=== PATIENT | male | born 1960 | race Caucasian/White ===

== ENCOUNTER → 2019-04-01 09:10 | Outpatient (CLI) | payer OTHER, SELFPAY ==
--- NOTE | 2019-04-01 | DI.US.S_ITS ---
PROCEDURE: US ABDOMEN COMPLETE INDICATIONS: PAIN OF UPPER ABDOMEN TECHNIQUE: Real-time scanning was performed of the abdominal and retroperitoneal organs, with image documentation. COMPARISON: None. FINDINGS: Liver: Liver is diffusely increased in echogenicity. Hypoechoic, solid-appearing mass present within the anterior right hepatic lobe measure 1.6 x 1.2 x 1.6 cm. Focal fatty sparing adjacent to the gallbladder.. Normal hepatic size. Gallbladder: Small amount of gallbladder sludge; otherwise normal gallbladder Biliary ducts: Intrahepatic bile ducts are non-dilated. Extrahepatic bile duct caliber measures 3.4 mm. Normal is 6-7 mm or less in diameter, or 10 mm or less post-cholecystectomy. Pancreas: Visualized portions of the pancreas are sonographically normal. Spleen: Spleen is normal in size and homogeneous in echotexture. Kidneys: Kidneys are normal in size and echotexture. Right kidney measures 13.7 cm long; left kidney measures 10.9 cm long. No hydronephrosis or nephrolithiasis. No solid masses. Hypoechoic mass seen superior-medial to the right kidney measuring 2.7 x 2.0 x 2.5 cm. Aorta: Visualized aorta is normal in caliber at less than 3 cm. Iliacs: Proximal common iliac arteries are normal in caliber at less than 2.5 cm. IVC: Intrahepatic inferior vena cava is patent. Miscellaneous: No free abdominal fluid. IMPRESSION: 1. Increased hepatic echogenicity noted possibly related to hepatic steatosis but other sources of hepatocellular disease cannot be excluded. Recommend clinical correlation. 2. Solid-appearing hypoechoic mass involving the right hepatic lobe measuring up to 1.6 cm. Recommend hepatic protocol MRI for further assessment. 3. Probable right adrenal mass which also can be further assessed with CT or MRI. Dictated by: Fausto GRAHAM Interpreted: Viktor Richardson MD on 04/03/2019 at 12:07 Approved by: Viktor Richardson M.D. on 04/03/2019 at 15:27
== END ==
PROVIDERS: PCP Family Medicine; Visit Provider Family Medicine
DX: R10.10 Upper abdominal pain, unspecified (principal); R16.0 Hepatomegaly, not elsewhere classified
CPT/HCPCS: 76700

== ENCOUNTER → 2019-05-07 10:37 | Outpatient (CLI) | payer OTHER, SELFPAY ==
--- NOTE | 2019-05-07 | DI.NM.S_ITS ---
PROCEDURE: NM HIDA WITH CCK PHARMACEUTICAL: 5.8 mCi Tc-99m mebrofenin IV; 1.8 mcg CCK IV. INDICATIONS: LIVER MASS/BILIARY SLUDGE TECHNIQUE: Following intravenous administration of Tc-99m mebrofenin, sequential anterior abdominal images were obtained. To evaluate the contractile response of the gallbladder in response to Cholecystokinin (CCK), sincalide (0.02 ?g/kg) was administered by slow intravenous infusion approximately 60 minutes after the administration of the radiopharmaceutical. Sequential imaging was continued for 30 minutes after the start of CCK infusion. Gallbladder ejection fraction was calculated. COMPARISON: None. FINDINGS: Biliary scan: There is normal tracer uptake and excretion by the liver. There is normal visualization of the intrahepatic ducts, common bile duct, and gallbladder. There is normal tracer transit into the duodenum. CCK stimulation: There is normal contractile response of the gallbladder to CCK infusion. The calculated gallbladder ejection fraction is 88%; normal values are above 35%. It has been shown that any patient abdominal pain after CCK administration is related to the rate of CCK injection, rather than to any underlying gallbladder disease (Clinical Nuclear Medicine 2012; 37: 63-70. Journal of Nuclear Medicine 2014; 55: 1-9). IMPRESSION: 1. Normal filling of gallbladder. No evidence for acute cholecystitis. 2. Normal contractile response of gallbladder to CCK stimulation. Dictated by: Thomas Carballo M.D. on 05/07/2019 at 13:56 Approved by: Thomas Carballo M.D. on 05/07/2019 at 13:57
--- NOTE | 2019-05-07 | DI.MRI.S_ITS ---
PROCEDURE: MR ABDOMEN WO/W CON INDICATIONS: LIVER MASS/BILIARY SLUDGE TECHNIQUE: Coronal HASTE, axial 2D FLASH in- and [id number]; axial breath-hold T2 FSE. Dynamic axial VIBE during the administration of contrast; post-contrast coronal VIBE or 2D FLASH with fat saturation from the hepatic dome to the iliac crests. Optional diffusion weighted imaging and ADC may be performed. COMPARISON: Abdominal ultrasound 04/01/2019. FINDINGS: Image quality: Excellent. Lung bases: No basal pleural effusions. Heart size is normal. Solid organs: Noncirrhotic liver morphology. Diffuse hepatic steatosis. A few areas of focal fatty sparing. Peripheral right hepatic lobe lesion measuring 1.4 x 1.4 cm, (5/17). The lesion demonstrates peripheral nodular discontinuous enhancement which follows the blood pool. No restricted diffusion. Gallbladder is nondistended. Small layering gallstones and possible small gallbladder polyp, (5/20). Biliary system is non dilated. Pancreas is normal in morphology. Spleen is normal in size and enhancement. No adrenal nodules. Both kidneys demonstrate normal size and enhancement, without hydronephrosis. Simple cyst at the superior pole of the right kidney measuring 2.2 cm. Nodes and vessels: No retroperitoneal or mesenteric adenopathy by size criteria. Aorta and inferior vena cava are normal in size. Bowel and peritoneum: Unenhanced bowel loops are normal in caliber. Scattered colonic diverticuli. No free fluid. Bones and soft tissues: No ventral hernias. No suspicious osseous lesion. T12 and L3 circumscribed mild T2 hyperintense lesions without enhancement most compatible with benign intraosseous hemangiomas. Bone marrow is otherwise in overall signal. IMPRESSION: 1. Non-cirrhotic liver morphology. Small benign hemangioma in the right lobe. 2. Diffuse hepatic steatosis. 3. No right adrenal nodule. There is an adjacent simple cyst in the superior pole the right kidney. 4. Cholelithiasis and possible small gallbladder polyp. Dictated by: Da Fernandez M.D. on 05/07/2019 at 13:00 Approved by: Da Fernandez M.D. on 05/07/2019 at 13:51
== END ==
PROVIDERS: PCP Family Medicine; Visit Provider Family Medicine
DX: D18.03 Hemangioma of intra-abdominal structures (principal); K76.0 Fatty (change of) liver, not elsewhere classified; N28.1 Cyst of kidney, acquired; K80.20 Calculus of gallbladder without cholecystitis without obstruction; R16.0 Hepatomegaly, not elsewhere classified
CPT/HCPCS: 74183; 78227; A9537; A9579; J2805

== ENCOUNTER 2019-08-03 11:21 | Day surgery (SDC) | payer OTHER, SELFPAY ==
[2019-07-27 14:39] VITALS: BMI 27.9
[2019-08-03] VITALS (10 sets, daily range): BP systolic 124–141; BP diastolic 64–93; PULSE 60–72; RESP 14–20; TEMP 36.1–36.6; O2SAT 93–98; BMI 28.0
--- NOTE | 2019-08-03 | PATH_ITS ---
[facility] Accession Number: [id number] . 01 Material submitted: . gallbladder - GALLBLADDER AND CONTENTS . 02 Diagnosis: Gallbladder and Contents, Cholecystectomy: Chronic cholecystitis, cholesterolosis, and cholelithiasis. One transmural defect identified at gross examination, nonspecific. MRV 08/05/2019 1252 Local . 02 Electronically signed: . Yudy Obrien MD, Pathologist NPI- [id number] . 01 Gross description: . The specimen is received in a formalin-filled container labeled gallbladder and contents and consists of a 9.5 x 3.3 x 1.5 cm pink-olivares smooth to cauterized gallbladder in which the cystic duct margin is inked blue. There is a single transmural defect in the body of the gallbladder up to 0.8 cm. There are multiple black to olivares-yellow bosselated calculi present, 0.1 cm up to 0.4 cm. The mucosa is olivares-green diffusely trabeculated focally velvety with a wall thickness that averages 0.3 cm. Sectioning reveals unremarkable cut surfaces. Care Transition Coordinator sections, including blue inked cystic duct margin, are submitted in A1. ([id number]) /[facility] 08/04/2019 1609 Local . 02 Pathologist provided ICD-10: K81.1, K80.60, K80.20, K81.9 . 02 CPT . 554617 Performed at: 01 [facility] [address], [place], [place] [id number] MD Graham Rodriguez MD Phone: [phone] Performed at: 02 [facility] [id number] [place], [place] [id number] MD Mery Gorman MD Phone: [phone]
[2019-08-03] MEDS: LACTATED RINGERS 1,000 ML 100 ML IV ×2 (13:11→16:42)
--- NOTE | 2019-08-03 13:56 | PM.PREOP ---
Pre-operative Note Interval Note History & Physical reviewed/Exam performed by Physician: Yes Changes to H&P: No
--- NOTE | 2019-08-03 14:11 | PM.PREOP ---
Pre-operative Note Interval Note History & Physical reviewed/Exam performed by Physician: Yes Changes to H&P: No
[2019-08-03] MEDS: CEFAZOLIN 2 GM/100 ML FROZ.PIGGY IV (14:25)
--- NOTE | 2019-08-03 15:01 | SUR.OPER ---
Supine on padded OR bed, head on pillow, safety belt at thigh, arms secured on padded arm board <90 degrees abduction. Legs uncrossed. Padded footboard in place. Tape over blanket to secure lower legs.
[2019-08-03] MEDS: BUPIVACAINE 0.5% (PF) VIAL 30 ML INJ (15:34)
--- NOTE | 2019-08-03 15:51 | PM.OP.1 ---
Operative Date/Time/Diagnoses Date of procedure: 08/03/19 Time of procedure: 15:45 Pre-op diagnosis: Cholelithiasis cholecystitis Procedure & Clinicians Procedure: Laparoscopic cholecystectomy Same procedure as scheduled: Yes Indications: Symptomatic gallbladder disease Surgeon: Rubén Schreiber Click Yes if Unassisted: Yes Anesthesia Type: General Operative Notes Findings: Fairly normal appearing gallbladder with stones. Closure Type: primary Specimen(s): other (Gallbladder) Prosthetic devices, grafts, tissues, transplants, or devices: None Estimated Blood Loss (mL): 5 Blood products transfused: none Procedure in detail: The patient was placed supine on the operating room table and underwent general endotracheal anesthesia. The patient was prepped and draped in the usual fashion. Local anesthetic was infiltrated near the umbilicus and curvilinear incision made and carried down through fascia into the peritoneal cavity. Stay sutures of 0 Vicryl were placed in the fascia. A 12 mm port was placed. The abdomen was insufflated. The patient was repositioned. Local anesthetic was infiltrated in 3 areas under the right costal margin and 3D incisions made followed by placing 3 5 mm ports under direct laparoscopic camera vision internally. The gallbladder was grasped and elevated. Dissection was begun near its end. A ductal structure singular nature going directly the gallbladder was identified and from surrounding structures. Three clips placed across it nerve was divided leaving 2 in the patient. The clip on the gallbladder side was dislodged when cutting the duct and there was some spillage of bilious material from the gallbladder but there were no stones in the spillage. There were several small vascular structures and 1 larger 1. All were clipped and divided with 2 being left on the largest structure.. The gallbladder was then dissected from its bed in the liver using cautery. It was detached and removed through the umbilical port. the right upper quadrant was irrigated and suctioned free of fluid. There was no ongoing bleeding and no bilious leakage. The ports were all removed. The port sites were all irrigated. The stay sutures at the umbilicus were elevated. A 2 0 PDS suture was placed between them. The Vicryl and PDS sutures were then tied. The skin in all areas was closed with interrupted 4 0 Vicryl subcuticular stitches. Steri-Strips and Mastisol were applied. Band-Aids were placed and the patient was awakened, extubated and taken to the recovery area in good condition. Complications: none Post-operative Condition: stable Disposition: PACU Plan for aftercare: Follow-up in the office
[2019-08-03] MEDS: fentaNYL 100 MCG/2 ML INJ 50 MCG IV ×2 (16:00→16:21)
[2019-08-03] MEDS: HYDROCODONE/ACET 5/325 TABLET 1 TAB PO (16:40)
== END 2019-08-03 17:40 | disposition home or self-care (01) ==
PROVIDERS: Family Provider Family Medicine; PCP Family Medicine; Visit Provider Specialist
PROC: 0FT44ZZ Resection of Gallbladder, Percutaneous Endoscopic Approach (ICD-10-PCS; CPT 47562; principal; 2019-08-03 13:30)
DX: K80.10 Calculus of gallbladder with chronic cholecystitis without obstruction (principal)
CPT/HCPCS: 47562; J0690; J1100; J2405; J2704; J3010

== ENCOUNTER → 2021-01-27 08:24 | Outpatient (CLI) | payer OTHER, SELFPAY ==
[2021-01-27 19:33] LABS: Alanine Aminotransferase 66 IU/L (<50); Albumin 4.2 g/dL (3.5-5.0); Albumin Globulin Ratio 1.3 (1.0-2.8); Alkaline Phosphatase 90 U/L (38-126); Aspartate Aminotransferase 59 IU/L (17-59); BUN Creatinine Ratio 18.7 (6-22); Bilirubin Total 0.9 mg/dL (0.2-1.3); Bilirubin Unconjugated 0.9 mg/dL (0.0-1.1); Blood Urea Nitrogen 14 mg/dL (9-20); Calcium 9.5 mg/dL (8.4-10.2); Carbon Dioxide 31 mmol/L (22-32); Chloride 102 mmol/L (98-107); Estimated Glomerular Filt Rate > 60.0 mL/min (>60); Globulin 3.2 g/dL (1.7-4.1); Glucose 99 mg/dL (80-110); HEMOLYSIS < 15 (0-50); Potassium 4.3 mmol/L (3.4-5.1); Sodium 138 mmol/L (137-145); Total Protein 7.4 g/dL (6.3-8.2)
[2021-01-27 20:08] LABS: Ferritin 327 ng/mL (18-464)
== END ==
PROVIDERS: Family Provider Family Medicine; PCP Physician Assistant; Visit Provider Physician Assistant
DX: R74.8 Abnormal levels of other serum enzymes (principal); N39.43 Post-void dribbling; N40.1 Benign prostatic hyperplasia with lower urinary tract symptoms
CPT/HCPCS: 80053; 80076; 82728; G0103

== ENCOUNTER → 2021-05-05 13:09 | Outpatient (CLI) | payer OTHER, SELFPAY ==
[2021-05-05 19:13] LABS: Prostate Specific Antigen 2.97 ng/mL (0.10-4.00)
== END ==
PROVIDERS: Family Provider Family Medicine; PCP Physician Assistant; Referring Provider Specialist; Visit Provider Specialist
DX: R39.9 Unspecified symptoms and signs involving the genitourinary system (principal)
CPT/HCPCS: 84153

== ENCOUNTER → 2021-11-02 08:34 | Outpatient (CLI) | payer OTHER, SELFPAY ==
[2021-11-02 20:06] LABS: Prostate Specific Antigen Scrn 3.61 ng/mL (0.1-4.0)
== END ==
PROVIDERS: Family Provider Family Medicine; PCP Family Medicine; Visit Provider Specialist
DX: R97.20 Elevated prostate specific antigen [PSA] (principal)
CPT/HCPCS: G0103

== ENCOUNTER → 2022-01-16 13:02 | Outpatient (CLI) | payer OTHER, SELFPAY ==
[2022-01-16 19:18] LABS: Prostate Specific Antigen 3.94 ng/mL (0.10-4.00)
== END ==
PROVIDERS: Family Provider Family Medicine; PCP Family Medicine; Visit Provider Specialist
DX: N40.1 Benign prostatic hyperplasia with lower urinary tract symptoms (principal); N13.8 Other obstructive and reflux uropathy
CPT/HCPCS: 84153

== ENCOUNTER 2024-03-03 10:58 | Day surgery (SDC) | payer OTHER, MEDICARE, SELFPAY ==
[2024-02-11 12:34] VITALS: BMI 28.3
[2024-03-03] VITALS (16 sets, daily range): BP systolic 105–139; BP diastolic 66–99; PULSE 53–106; RESP 10–20; TEMP 36.2–37.4; O2SAT 93–100; BMI 27.6
--- NOTE | 2024-03-03 | PATH_ITS ---
[facility] Accession Number: [id number] No. of containers..01 Tissue . 01 Material submitted: . prostate - PROSTATE CHIPS . 01 Diagnosis: PROSTATE CHIPS (LESS THAN 1 GRAM), TRANSURETHRAL RESECTION: Benign prostatic hyperplasia. No evidence of malignancy. V 03/09/2024 1322 Local . 01 Electronically signed: . Aydee Cook MD, Pathologist NPI- [id number] . 01 Gross description: . Received in formalin with two identifiers and prostate chips, are multiple olivares, rubbery soft tissue fragments admixed with hemorrhagic material weighing less than 1 gram and aggregating to 2.5 x 1.6 x 0.3 cm. Filtered and submitted entirely in A1-A2. ([id number]) /V 03/04/2024 1840 Local . 01 Pathologist provided ICD-10: N40.1 . 01 CPT . 215382 Specimen Comment: A courtesy copy of this report has been sent to [phone] Performed at: [address] [id number] MD Graham Rodriguez MD Phone: [phone]
[2024-03-03] MEDS: LACTATED RINGERS 1,000 ML 42 ML IV (11:37)
--- NOTE | 2024-03-03 12:33 | PM.PREOP ---
Pre-operative Note COVID-19 COVID-19 status: Not tested Interval Note History & Physical reviewed/Exam performed by Physician: Yes Changes to H&P: No
[2024-03-03] MEDS: CEFAZOLIN 2 GM/100 ML PREMIX 100 ML IV (13:05)
--- NOTE | 2024-03-03 13:18 | SUR.OPER ---
Lithotomy on padded OR bed, head on pillow, arms secured on padded arm boards at <90 degrees abduction. Legs secured in padded yellow fins stirrups.
--- NOTE | 2024-03-03 14:45 | P.OP_ITS ---
Procedure & Clinicians Procedure: 1. Aquablation resection of prostate 2. Transrectal ultrasound of prostate 3. Transurethral resection of prostate with fulguration Same procedure as scheduled: Yes Indications: Indications: This is a 63-year-old male who presented with complaints of benign prostatic hyperplasia with lower urinary tract symptoms. He is very interested in preserving sexual function and had read about Aquablation. He underwent workup and was found to be an ideal candidate for Aquablation. He had a prostate that was in the 56 g range. AUA usually symptom score of 20 and a Q max of 5.2. At cystoscopy he had an obstructing prostate with a small bulge into the bladder. He presents this time for Aquablation resection of his prostate. Surgeon: Gonzalez Segovia Click Yes if Unassisted: Yes Anesthesia Type: General Operative Notes Findings: Findings: Urethral meatus is normal urethra is normal with normal mucosa. Prostate shows marked obstructive character in a bilobar fashion with a very small bulge into the bladder. Ureteral orifices in normal position with clear efflux at the end of the case the right ureteral orifice was in normal position with clear efflux in the left ureteral orifice was in normal position and also had clear efflux. There were no other abnormalities in the bladder there was some trabeculation. Hemostasis was good a 24 [place] three-way hematuria catheter was left in place with 45 cc in the balloon the urine was blush to light pink in color. All the chips were evacuated and forward to pathology for pathologic examination. Closure Type: not applicable Specimen(s): other (Prostate chips) Applied: catheter ([address] hematuria catheter with 45 cc in the balloon.) Estimated Blood Loss (mL): 50 Blood products transfused: none Procedure in detail: Procedure in detail: After informed consent was obtained, the patient was identified and brought to the operating room where he is placed in his supine position on the table. Once there anesthesia was induced and maintained. Ensuring an adequate level of anesthesia the patient was transitioned to the lithotomy position where he was prepped. Once prepped and after time-out, ensuring an adequate level of anesthesia, as well as administration of antibiotics the patient had 60 cc of ultrasound gel instilled in the rectum and the ultrasound probe was inserted in the following fashion. With the trust stepper attached to the articulating arm which he had been secured to the bed in the ultrasound probe attached to the stepper the ultrasound probe was inserted into the rectum. Once in the rectum it was aligned in both the sagittal and transverse planes. With the ultrasound probe position confirmed the patient was then draped in a sterile fashion and prepared for Transurethral Aquablation. Once the patient was draped. The 24 [place] aqua beam handpiece was inserted under direct vision through the urethra prostate and into the bladder. As it was inserted the level of the external sphincter, verumontanum and bladder neck were noted via ultrasound. The aqua beam handpiece was then left in the bladder and the cystoscope was backed up to the level of the sphincter and then placed just proximal to the level of the external sphincter. As this was done the parallel and colinear alignment of the aqua beam handpiece and ultrasound were confirmed. This was done after the aqua beam handpiece was attached to the arcus calculating arm which he had been attached to the bed. Again confirmation of alignment being parallel and colinear was once again ensured. The cystoscope as noted above was backed up and left just proximal to the external sphincter. The horizontal alignment of the handpiece water jets was then performed and confirmed. The treatment zones were then placed and both the transverse and longitudinal planes of the prostate. This planning and confirmation of treatment was done with real-time live ultrasound. And included depth and radial angles of resection as well as in the longitudinal view the treatment start bladder neck mid prostate and end of treatment at the cystoscope tip. The treatment planning was confirmed with low-level activation of the water jet. With the treatment plan in place ensuring an adequate level of anesthesia and that the patient would not move the Aquablation water jet was activated and the 1st passed completed. A 2nd pass was completed making adjustments in the longitudinal view. With the 2nd pass completed total time was 7 minutes 2 seconds for the 2 passes. The cystoscope was advanced to the tip of the hand piece and the hand piece looked out under direct vision. A continuous-flow resectoscope was then inserted and need evacuator used to evacuate any clots that were present. The ureteral orifices were identified and found to be in good position. Then starting at approximately the 10 o'clock position at the bladder neck the tissue was resected and points of bleeding controlled with the electrocautery. This resection continued around to approximately the 9 to 10 o'clock position. In the 6 o'clock position there was a flap of tissue from the small median lobe which was also resected. Anteriorly there were some venous ooze which was controlled with the electrocautery. At the level of the veru again was checked for hemostasis and at that point it was good. An Avisena evacuator was then used to evacuate the prostate chips and the bladder neck was once again visualized and there were a couple of more points of bleeding which were controlled with the electrocautery. At that point with the bladder full the scope was removed and the patient had a vigorous stream the 24 [place] three- way hematuria catheter was then placed with the aid of a catheter guide. The balloon was filled with 45 cc of sterile water. The catheter was placed to gentle traction and irrigated it was then connected to continuous bladder irrigation which was started. The effluent was light pink in color. The prostate chips were forwarded to pathology. At this point the patient was awakened having tolerated the procedure well and was transferred to the po stanesthesia care unit for recovery. There were no complications. Again continuous bladder irrigation was running in the catheter was on gentle traction. Complications: none Post-operative Condition: stable Disposition: PACU Plan for aftercare: Patient will be observed in recovery and a decision to discharge to home or to bring in for a 23 hour observation stay will be made. Patient will go home with a catheter and likely return on for catheter removal.
[2024-03-03] MEDS: LORazepam 2 MG/ML INJ 0.25 MG IV ×2 (15:18→15:23)
[2024-03-03] MEDS: OXYBUTYNIN 5 MG TABLET PO (15:22)
[2024-03-03] MEDS: PHENAZOPYRIDINE 100 MG TABLET 200 MG PO (15:22)
--- NOTE | 2024-03-03 17:20 | SUR.PHASEII ---
Discharge education was being done with patient and spouse when he passed two clots and began oozing blood from the meatus. Dr. Segovia was in the department and was immediately notified. MD evaluated and treated patient. Continuous irrigation restarted. Patient cleaned by MD. MD reported patient was to stay the night for care, patient and spouse agreed. Report has been called to Samuel. Patient transferred to the floor with his belongings bag by Po. Spouse present.
[2024-03-03] MEDS: NITROFURANTOIN ER 100 MG CAPSULE PO (21:06)
[2024-03-03] MEDS: ACETAMINOPHEN 325 MG TABLET 650 MG PO (22:21)
--- NOTE | 2024-03-04 07:49 | PM.PN.1 ---
Subjective Subjective Date Patient Seen: 03/04/24 Time Patient Seen: 07:49 Interval history: Patient is seen in the morning after his Aquablation procedure. And reports that he had a good night. Having no pain initially had some discomfort took Tylenol and states that this took care of it completely. His urine is very light light light pink to clear with very minimal CBI running. He has had some blood around the meatus but this is minimal. And he has at a point where he could be discharged. He has no complaints of pain is tolerating a regular diet and has been up to the bathroom. We will discharge him to home Exam Vital Signs (past 8 hours): Oxygen Delivery Method Room Air Oxygen Flow Rate 0 Narrative Exam Narrative: General: The patient is awake alert oriented with no complain of pain. Abdomen: Soft, nontender, without mass. Genitourinary exam: Hollingsworth catheter in place minimal blood around the meatus which is to be expected. Hollingsworth catheter draining ever so slightly pink to clear urine. Traction in his been released. Extremities: Without edema or tenderness. PFSH Medical History Slowing of urinary stream Incomplete emptying of bladder BPH w urinary obs/LUTS Prostate nodule with urinary obstruction Hx of gout Sleep apnea Hirsutism Anxiety HLD (hyperlipidemia) Pneumonia History of abdominal hernia Surgical History H/O: vasectomy Hx of cholecystectomy (08/03/19) History of repair of hiatal hernia Status post repair of ventral hernia History of Bell fundoplication Family History Father Heart disease Grandfather BPH (benign prostatic hyperplasia) Mother Cancer Social History marital status: number of children: 4 household members: spouse occupational status: employed Smoking Status: Never smoker alcohol intake: never substance use type: does not use caffeine: No Assessment & Plan Assessment and plan (1) BPH w urinary obs/LUTS: Status: Acute (2) Incomplete emptying of bladder: Status: Acute Plan Assessment and plan: Patient doing well urine has cleared plan would be to discharge the patient to home follow-up in my office in the morning for likely catheter removal instructions were given to the patient. Quality VTE Deep Vein Thrombosis/Pulmonary Embolism Present on Admission: No
[2024-03-04 08:00] VITALS: BP 106/66; PULSE 101; RESP 14; TEMP 36.7; O2SAT 98
[2024-03-04] MEDS: NITROFURANTOIN ER 100 MG CAPSULE PO (08:22)
--- NOTE | 2024-03-04 10:32 | CM.DANOTE ---
Brief DCP assessment note Pt is a 63yo M here following aquablation with Dr. Segovia. Pt is POD1. PCP Hector Esteban [facility] and [employer] TAILINGS WORKER reviewed EMR. Per Dr. Segovia, pt cleared to dc home today. Per chart review, pt lives on [place]. TAILINGS WORKER met very briefly with pt and family in room as RN was reviewing dc instructions. Pt and family confirmed they plan to stay in hotel tonight and have priority boarding pass for [place] from Dr. Segovia's office already for tomorrow. Deny other DCP/CM needs at this time. P: dc today to hotel in [place] then home with spouse on ferry tomorrow to [place]. No CM needs. CM team will continue to follow as needed. 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 No History Provided By Patient,Medical Record Prior Living Arrangements House Household Members spouse Type of transporation used prior to Drives own vehicle admit Independent with ADL's Yes Is patient alert and oriented? Yes Barriers to Discharge No Discharge Plan Home Transportation Arrangement family in [place] Referrals Initiated None needed Review Status In Process Please Provide Date Initial DC 03/04/24 Assessment Was Performed Next Review Type Continued Stay Review Pre-Anesthesia Assessment Start: 02/11/24 12:34 Freq: Status: Active Protocol: Document 02/11/24 12:34 CAB (Rec: 02/11/24 12:38 CAB [id number]) Pre-Anesthesia Assessment Patient Information Reviewed Via Chart Review Primary Care Provider Hector Esteban Seen Specialist in Last 12 Months Yes Specialist Seen Urologist Primary Language Chinese Systems Development Consultant Required No Height 179.07 cm Weight 90.718 kg Body Mass Index (BMI) 28.3 Barriers to Learning None Other Aids No Hx Anesthesia Reactions No Hx Family Anesthesia Reaction No Hx Malignant Hyperthermia No Hx Blood Transfusions No Hx Blood Transfusion Reaction No Anesthesia Review Requested No Semiconductor Bonder No alcohol intake never alcohol intake frequency holidays/special occasions only Smoking Status Never smoker Substance Use Type does not use History of Falling (Recent or History of No ) Patient is completely paralyzed or No completely immobile Mental Status Oriented to own ability Is patient on oxygen? No Does patient have EM/SOB No Hx Sleep Apnea Yes CPAP/BIPAP use prescribed not used Currently Taking a Beta Donnie No Hx Chest Pain No Hx SOB No Hx Syncope or Dizziness No Anti-Coagulant Therapy No Cardiac Testing No Hx Pacemaker/ICD No Pacemaker Rep Required? No Cardiac Clearance Received No Gastrointestinal Symptoms Reflux Urinary Catheter Present No Hx Urinary Self Catheterization No Diabetes No Presence of External or Internal Medical No Devices Marital Status Lives With spouse Patient Discharge Plan Description Return Home Comment Lives on [place] Advance Directives? No Power of Pulp Roller No
== END 2024-03-04 11:00 | disposition home or self-care (01) ==
LOC: OR 15:39 → AC 17:11
PROVIDERS: Family Provider Family Medicine; PCP Family Medicine; Referring Provider Urology; Visit Provider Urology
PROC: 0VT08ZZ Resection of Prostate, Via Natural or Artificial Opening Endoscopic (ICD-10-PCS; CPT 0421T; principal; 2024-03-03 13:00)
DX: N40.1 Benign prostatic hyperplasia with lower urinary tract symptoms (principal); N13.8 Other obstructive and reflux uropathy; R33.9 Retention of urine, unspecified
CPT/HCPCS: 0421T; 82962; C2596; J0690; J1100; J1170; J2060; J2250; J2405; J2704; J3010; J3490

== ENCOUNTER → 2024-03-05 13:42 | Outpatient (CLI) | payer OTHER, MEDICARE, SELFPAY ==
[2024-03-04 09:32] VITALS: BMI 27.6
[2024-03-05 14:11] LABS: Appearance Urine UA CLOUDY; Color Urine UA RED; Urine Volume 10mL (spun)
[2024-03-05 14:12] LABS: Bacteria Urine Moderate (10-30); Culture Indicated Urine Specimen Cultured; Mucus Urine 1+ (Negative); RBC Urine >100/HPF (0-5/HPF); Squamous Epithelial Cell Urine 0-1 /HPF (0-5/HPF); WBC Urine 10-30/HPF (0-5/HPF)
== END ==
PROVIDERS: Family Provider Family Medicine; PCP Family Medicine; Visit Provider Urology
DX: N40.3 Nodular prostate with lower urinary tract symptoms (principal); N13.8 Other obstructive and reflux uropathy
CPT/HCPCS: 81001; 87086

== ENCOUNTER → 2024-03-18 13:02 | Outpatient (CLI) | payer OTHER, MEDICARE, SELFPAY ==
[2024-03-04 09:32] VITALS: BMI 27.6
== END ==
PROVIDERS: Family Provider Family Medicine; PCP Family Medicine; Visit Provider Urology
DX: N40.1 Benign prostatic hyperplasia with lower urinary tract symptoms (principal); N13.8 Other obstructive and reflux uropathy; Z98.890 Other specified postprocedural states
CPT/HCPCS: 81002; 87086